=== PATIENT | male | born 1955 | race Caucasian/White ===

== ENCOUNTER → 2016-10-22 | Outpatient (CLI) | payer MEDICARE ==
[~2016-10-22] MED LIST: FLAGYL500 MG PO
== END | disposition home or self-care (01) ==
LOC: RAD 08:49
DX: J43.2 Centrilobular emphysema (principal)

== ENCOUNTER → 2021-05-17 | Outpatient (CLI) | payer MEDICARE ==
[~2021-05-17] MED LIST changes: +BAYER BACK & B1 EACH PO; +BREO ELLIPTA 11 EACH PO; +CLARITIN10 MG PO; +LEVAQUIN750 M1 PO; +LOSARTAN-HCTZ1 EAC2 PO; +MUCINEX ER600 MG PO; +PREDNISONE10 MG PO; +PROAIR HFA8.5 GM INH; +TYLENOL325 M1 PO; +VITAMIN D32000 UNI1 PO
[2021-05-17 08:10] LABS: CREATININE 0.98 mg/dL (0.70-1.30)
== END | disposition home or self-care (01) ==
LOC: LAB 07:34 → CT 08:00
PROVIDERS: ATTEND Physician Assistant
DX: J43.2 Centrilobular emphysema (principal); K76.0 Fatty (change of) liver, not elsewhere classified; I71.2 Thoracic aortic aneurysm, without rupture; R91.8 Other nonspecific abnormal finding of lung field

== ENCOUNTER → 2021-07-13 | Outpatient (CLI) | payer MEDICARE | END | disposition home or self-care (01) | LOC: CARD 12:45 | PROVIDERS: ATTEND Internal Medicine | DX: I35.8 Other nonrheumatic aortic valve disorders (principal); I49.9 Cardiac arrhythmia, unspecified; I11.9 Hypertensive heart disease without heart failure; I71.2 Thoracic aortic aneurysm, without rupture ==

== ENCOUNTER → 2021-11-09 | Outpatient (CLI) | payer MEDICARE ==
[2021-11-09 07:52] LABS: BUN 15 mg/dl (7-24); CHLORIDE 99 mmol/L (98-107); CREATININE 0.99 mg/dL (0.70-1.30); POTASSIUM 4.1 mmol/L (3.5-5.1); SODIUM 140 mmol/L (136-145)
== END | disposition home or self-care (01) ==
LOC: LAB 07:22 → CT 08:00
PROVIDERS: ATTEND Internal Medicine
DX: I71.2 Thoracic aortic aneurysm, without rupture (principal); R91.8 Other nonspecific abnormal finding of lung field; K76.0 Fatty (change of) liver, not elsewhere classified; J43.9 Emphysema, unspecified; I10 Essential (primary) hypertension

== ENCOUNTER → 2022-05-03 | Outpatient (CLI) | payer MEDICARE ==
[2022-05-03 08:54] LABS: BUN 12 mg/dl (9-23); CHLORIDE 98 mmol/L (98-107); POTASSIUM 4.5 mmol/L (3.4-5.1)
== END | disposition home or self-care (01) ==
LOC: LAB 00:56 → CT 09:00
PROVIDERS: ATTEND Internal Medicine
DX: I71.21 Aneurysm of the ascending aorta, without rupture (principal); R91.8 Other nonspecific abnormal finding of lung field; J43.2 Centrilobular emphysema; I10 Essential (primary) hypertension

== ENCOUNTER 2023-08-12 21:19 | Inpatient (IN) | payer MEDICARE ==
[~2023-08-12] VITALS: Ht 152.4 cm; Wt 104.8 kg
[~2023-08-12 21:19] MED LIST changes: +CLARITIN-D 121 EACH PO; +CRESTOR5 M1 PO; +LOPRESSOR25 MG PO; +PROAIR DIGIHAL90 MCG INH; +TRELEGY ELLIPT1 EACH INH; +VITAMIN D325 MCG PO
[2023-08-12 21:34] VITALS: BP 143/82
[2023-08-12] MEDS ORDERED: Albuterol Sulfate 1.25 MG/3 ML VIAL NEB ONE (21:40)
[2023-08-12] MEDS ORDERED: methylPREDNISolone sod succ 125 MG VIAL IM ONE (21:40)
[2023-08-12] MEDS ORDERED: methylPREDNISolone sod succ 125 MG VIAL IV ONE (21:45)
[2023-08-12 21:57] LABS: BASO # 0.1 10*3/uL (0.0-0.1); BASO % 0.4 % (0.0-1.0); EOS % 0.1 % (1.0-4.0); HEMATOCRIT 46.6 % (42.0-52.0); LYMPH % 7.1 % (27.0-41.0); MEAN CORPUSCULAR HGB 29.6 pg (27.0-31.0); MEAN CORPUSCULAR HGB CONC 31.5 g/dl (33.0-37.0); MEAN PLATELET VOLUME 9.6 fl (9.6-12.3); MONO # 1.1 10*3/uL (0.1-1.0); MONO % 7.7 % (3.0-9.0); NEUT # 11.4 10*3/uL (2.3-7.9); NEUT % 84.2 % (47.0-73.0); PLATELET COUNT AUTOMATED 163 10*3/uL (130-400); RED BLOOD COUNT 4.96 10*6/uL (4.50-5.90); WHITE BLOOD COUNT 13.6 10*3/uL (4.8-10.8)
[2023-08-12 22:11] LABS: ACT PARTIAL THROMBO TIME 28.1 SECONDS (20.0-32.1)
[2023-08-12 22:18] LABS: ALKALINE PHOSPHATASE 98 U/L (46-116); BUN 15 mg/dl (9-23); CHLORIDE 96 mmol/L (98-107); POTASSIUM 3.7 mmol/L (3.4-5.1); SGPT/ALT 19 U/L (5-49); TOTAL PROTEIN 7.8 gm/dL (6.0-8.0)
[2023-08-12 22:44] VITALS: BP 138/74
[2023-08-12] MEDS ORDERED: AZITHROMYCIN 250 ML IV ONE (23:30)
[2023-08-12] MEDS ORDERED: Ceftriaxone Sodium 1 GM/10 ML SYR IV ONE (23:30)
[2023-08-12 23:58] LABS: ABG BASE EXCESS 2.3 mmol/L (-2.0-2.0); ARTERIAL BLOOD GAS PH 7.391 (7.35-7.45)
[2023-08-13] VITALS (11 sets, daily range): BP systolic 126–151; BP diastolic 73–93
[2023-08-13] MEDS ORDERED: BISACODYL 10 MG SUPP R PRN (03:30)
[2023-08-13] MEDS ORDERED: ACETAMINOPHEN 650 MG SUPP R PRN (03:30)
[2023-08-13] MEDS ORDERED: Magnesium Hydroxide 30 ML UDC PO PRN (03:30)
[2023-08-13] MEDS ORDERED: BISACODYL 5 MG TAB PO PRN (03:30)
[2023-08-13] MEDS ORDERED: ACETAMINOPHEN 325 MG TAB PO PRN (03:30)
[2023-08-13] MEDS ORDERED: Albuterol Sulf/Ipratropium 3 ML VIAL NEB SCH (03:40)
[2023-08-13] MEDS ORDERED: SODIUM CHLORIDE 0.9% 1,000 ML IV SCH (04:20)
[2023-08-13 04:35] LABS: HEMATOCRIT 47.7 % (42.0-52.0); MEAN CELL VOLUME 93.7 fl (80.0-94.0); MEAN CORPUSCULAR HGB 29.5 pg (27.0-31.0); MEAN CORPUSCULAR HGB CONC 31.4 g/dl (33.0-37.0); MEAN PLATELET VOLUME 9.8 fl (9.6-12.3); PLATELET COUNT AUTOMATED 157 10*3/uL (130-400); RED BLOOD COUNT 5.09 10*6/uL (4.50-5.90); RED CELL DISTRI WIDTH 12.9 % (0-14.5); WHITE BLOOD COUNT 15.2 10*3/uL (4.8-10.8)
[2023-08-13 04:37] LABS: MANUAL DIFF REFLEX YES
[2023-08-13 04:57] LABS: PLATELET SUFFICIENCY NORMAL (NORMAL); TOTAL CELLS COUNTED 100 #CELLS
[2023-08-13 04:58] LABS: SPHEROCYTES FEW; STOMATOCYTE FEW
[2023-08-13 05:03] LABS: BUN 15 mg/dl (9-23); CHLORIDE 96 mmol/L (98-107); CHOLESTEROL 145 mg/dL (<200); FREE T4 0.82 ng/dl (0.89-1.76); LDL CHOLESTEROL 78 mg/dL (9-159); POTASSIUM 3.8 mmol/L (3.4-5.1); TRIGLYCERIDES 56 mg/dl (<150)
[2023-08-13] MEDS ORDERED: Enoxaparin Sodium 40 MG/0.4 ML SYR SC SCH (10:00)
[2023-08-13] MEDS ORDERED: methylPREDNISolone sod succ 40 MG VIAL IV SCH (10:00)
[2023-08-13] MEDS ORDERED: GUAIFENESIN 600 MG TAB ER PO SCH (10:00)
[2023-08-13] MEDS ORDERED: Metoprolol Tartrate 25 MG TAB PO SCH (22:00)
[2023-08-13] MEDS ORDERED: Ceftriaxone Sodium 1 GM in SYRINGE INFUSION 10 ML IV SCH (23:30)
[2023-08-13] MEDS ORDERED: AZITHROMYCIN 250 ML IV SCH (23:30)
[2023-08-14] VITALS: BP 136/68
[2023-08-14] MEDS ORDERED: SODIUM CHLORIDE Nasal 44 ml bottle NAS PRN (06:55)
[2023-08-14 08:00] VITALS: BP 127/78
[2023-08-14] MEDS ORDERED: Losartan Potassium 100 MG TABLET PO SCH (10:00)
[2023-08-14] MEDS ORDERED: ATORVASTATIN CALCIUM 20 MG TAB PO SCH (10:00)
[2023-08-14] MEDS ORDERED: HYDROCHLOROTHIAZIDE 12.5 MG CAP PO SCH (10:00)
[2023-08-14 12:00] VITALS: BP 126/81
[2023-08-14 16:00] VITALS: BP 124/80
[2023-08-14 20:00] VITALS: BP 125/89
[2023-08-15 00:19] VITALS: BP 138/72
[2023-08-15 06:24] LABS: BASO % 0.1 % (0.0-1.0); HEMATOCRIT 43.9 % (42.0-52.0); LYMPH # 1.5 10*3/uL (1.3-4.4); LYMPH % 10.1 % (27.0-41.0); MEAN CELL VOLUME 94.2 fl (80.0-94.0); MEAN CORPUSCULAR HGB CONC 31.9 g/dl (33.0-37.0); MEAN PLATELET VOLUME 10.4 fl (9.6-12.3); MONO % 6.9 % (3.0-9.0); NEUT % 82.1 % (47.0-73.0); PLATELET COUNT AUTOMATED 188 10*3/uL (130-400); RED BLOOD COUNT 4.66 10*6/uL (4.50-5.90); RED CELL DISTRI WIDTH 13.3 % (0-14.5); WHITE BLOOD COUNT 14.6 10*3/uL (4.8-10.8)
[2023-08-15 08:00] VITALS: BP 139/67
[2023-08-15] MEDS ORDERED: DOXYCYCLINE HY100 M3 PO (11:05)
== END 2023-08-15 12:27 | disposition home or self-care (01) | DRG 871 ==
LOC: ED 21:19 → EDHOLD 08-13 02:42 → ICCU 08-13 02:42
PROVIDERS: Internal Medicine; Nurse Practitioner; Student in an Organized Health Care Education/Training Program; ADMIT Internal Medicine; ATTEND Internal Medicine
PROC: 5A09357 Assistance with Respiratory Ventilation, Less than 24 Consecutive Hours, Continuous Positive Airway Pressure (ICD-10-PCS; principal; 2023-08-13)
PROC: 5A09357 Assistance with Respiratory Ventilation, Less than 24 Consecutive Hours, Continuous Positive Airway Pressure (ICD-10-PCS; 2023-08-14)
PROC: 5A09357 Assistance with Respiratory Ventilation, Less than 24 Consecutive Hours, Continuous Positive Airway Pressure (ICD-10-PCS; 2023-08-15)
DX: A41.9 Sepsis, unspecified organism (principal); J18.9 Pneumonia, unspecified organism; J96.21 Acute and chronic respiratory failure with hypoxia; J96.22 Acute and chronic respiratory failure with hypercapnia; J44.1 Chronic obstructive pulmonary disease with (acute) exacerbation; J44.0 Chronic obstructive pulmonary disease with (acute) lower respiratory infection; E87.1 Hypo-osmolality and hyponatremia; J98.11 Atelectasis; E87.3 Alkalosis; Z68.42 Body mass index [BMI] 45.0-49.9, adult; E66.9 Obesity, unspecified; R65.20 Severe sepsis without septic shock; E87.8 Other disorders of electrolyte and fluid balance, not elsewhere classified; R73.9 Hyperglycemia, unspecified; E78.00 Pure hypercholesterolemia, unspecified; I10 Essential (primary) hypertension; J44.9 Chronic obstructive pulmonary disease, unspecified; K21.9 Gastro-esophageal reflux disease without esophagitis; I71.21 Aneurysm of the ascending aorta, without rupture; G47.33 Obstructive sleep apnea (adult) (pediatric); Z90.49 Acquired absence of other specified parts of digestive tract; Z82.49 Family history of ischemic heart disease and other diseases of the circulatory system; Z82.3 Family history of stroke; Z79.51 Long term (current) use of inhaled steroids; Z79.899 Other long term (current) drug therapy

== ENCOUNTER → 2023-11-04 | Outpatient (CLI) | payer MEDICARE ==
[~2023-11-04] MED LIST changes: +DOXYCYCLINE HY100 M3 PO
== END | disposition home or self-care (01) ==
LOC: CT 09:43
PROVIDERS: ATTEND Internal Medicine Critical Care Medicine
DX: Z12.2 Encounter for screening for malignant neoplasm of respiratory organs (principal); J30.89 Other allergic rhinitis; J96.11 Chronic respiratory failure with hypoxia; G47.33 Obstructive sleep apnea (adult) (pediatric); I25.10 Atherosclerotic heart disease of native coronary artery without angina pectoris; I71.20 Thoracic aortic aneurysm, without rupture, unspecified; R91.8 Other nonspecific abnormal finding of lung field; Z86.16 Personal history of COVID-19; Z99.81 Dependence on supplemental oxygen; Z87.891 Personal history of nicotine dependence; Z68.30 Body mass index [BMI] 30.0-30.9, adult